=== PATIENT | female | born 1985 | race American Indian/Alaskan Native ===

== ENCOUNTER 2017-03-30 13:20 | Emergency (ER) | payer OTHER, MEDICAID ==
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
[2017-03-30] MEDS: TYLENOL PO ONE (14:52)
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
--- NOTE | 2017-03-30 15:21 | XRay Report ---
RIB RADIOGRAPHS WITH CHEST VIEW INDICATION: Chest pain. COMPARISON: None similar at this institution. FINDINGS: Frontal chest as also AP and oblique radiographs to evaluate left ribs, 5 projections demonstrate normal cardiomediastinal silhouette. Clear lungs without effusions, CHF or pneumothorax. Specifically, no definite or significantly displaced left rib fracture identified. CONCLUSION: No acute left rib or chest radiographic abnormality with few incidental findings, as described. Please note that some acute rib fractures may be radiographically occult. Thank you for the opportunity to participate in this patient's care.
[2017-03-30 15:26] LABS: Basophils % (Auto) 0.4 % (0.0-1.8); Eosinophils % (Auto) 0.2 % (0.0-4.3); Hematocrit 36.1 % (30.3-42.9); Hemoglobin 11.6 gm/dl (10.1-14.3); Mean Corpuscular HGB Conc 32 % (30-34); Mean Corpuscular Hemoglobin 28 pg (28-32); Mean Corpuscular Volume 87 fl (79-97); Platelet Count 312 K/mm3 (140-440); Red Blood Count 4.14 M/mm3 (3.65-5.03); Red Cell Distribution Width 12.8 % (13.2-15.2); White Blood Count 12.4 K/mm3 (4.5-11.0)
[2017-03-30] MEDS: PERCOCET 5/325 PO ONE (18:51)
[2017-03-30] MEDS: BOOSTRIX IM ONE (18:53)
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
[2017-03-30 21:44] VITALS: BP 128/72
== END 2017-03-30 21:46 | disposition home or self-care (01) ==
LOC: ED 13:20
DX: S52.351A Displaced comminuted fracture of shaft of radius, right arm, initial encounter for closed fracture (principal); V49.49XA Driver injured in collision with other motor vehicles in traffic accident, initial encounter; Y93.9 Activity, unspecified; Y92.9 Unspecified place or not applicable; Y99.9 Unspecified external cause status
CPT/HCPCS: 36415; 84703; 85025; 90471; 90715